=== PATIENT | male | born 1965 | race Caucasian/White ===

== ENCOUNTER 2020-11-04 06:35 | Emergency (ER) | payer BC, SELFPAY ==
[2020-11-04] MEDS ORDERED: CLINDAMYCIN 600MG/D5W 600 MG/50 ML BAG IV ONE (09:25)
[2020-11-04] MEDS ORDERED: KETOROLAC 30 MG/ML INJ ONE (09:25)
[2020-11-04 09:26] LABS: Basophils % 1.1 % (0-1.3); Hematocrit 38.1 % (39.6-49.0); Lymphocytes % 15.6 % (15.3-44.8); RBC Red Blood Cell Count 4.07 M/uL (4.33-5.43)
[2020-11-04] MEDS ORDERED: NA CHLORIDE 0.9% 1,000 ML ONE (09:26)
[2020-11-04 09:44] LABS: Albumin 3.5 g/dL (3.4-5.0); Bilirubin Total 0.6 mg/dL (0.2-1.0); Potassium 4.3 mmol/L (3.5-5.1); Protein, Total 7.4 g/dL (6.4-8.2)
--- NOTE | 2020-11-04 09:51 | RAD REPORT ---
EXAM DESCRIPTION: US - Extremity Nonvascular Limited - 11/04/2020 9:39 am CLINICAL HISTORY: Left elbow swelling COMPARISON: None FINDINGS: Heterogeneous fluid collection is present within the posterior left elbow measuring 3.7 x 0.6 x 3.2 centimeters. IMPRESSION: Heterogeneous fluid collection is present within the posterior left elbow measuring 3.7 x 0.6 x 3.2 centimeters. This could represent a hematoma, inflammatory or infected fluid collection
--- NOTE | 2020-11-04 10:29 | EDPHYS ---
Physician Documentation [facility] Name: Adolfo Kirkpatrick Age: 55 yrs Sex: Male : 1965 Arrival Date: 11/04/2020 Time: 06:44 Bed 18 Private MD: Yaya Saavedra E ED Physician Kera Muñiz HPI: 11/04 09:21 This 55 yrs old Male presents to ER via Ambulatory with complaints of arm ma2 swelling. 09:21 The patient or guardian complains of pain, swelling, tenderness. Onset: The ma2 symptoms/episode began/occurred gradually, 3 day(s) ago. Associated signs and symptoms: Pertinent negatives: abdominal pain, chest pain, diaphoresis, neck pain, shortness of breath, tingling. Severity of symptoms: At their worst the symptoms were mild, in the emergency department the symptoms are unchanged. The patient has not experienced similar symptoms in the past. Historical: - Allergies: 07:42 No Known Allergies; iw - PMHx: 07:42 None; iw - PSHx: 07:42 Appendectomy; cancer removed off lip; iw - Immunization history:: Adult Immunizations not immunized. - Social history:: Smoking status: Patient/guardian denies using tobacco, the patient reports quitting approximately 4 years ago. - Family history:: not pertinent. ROS: 09:21 Constitutional: Negative for fever, chills, and weight loss. ma2 09:21 All other systems are negative. Exam: 09:21 Constitutional: This is a well developed, well nourished patient who is awake, alert, ma2 and in no acute distress. Chest/axilla: Normal chest wall appearance and motion. Nontender with no deformity. No lesions are appreciated. Cardiovascular: Regular rate and rhythm with a normal S1 and S2. No gallops, murmurs, or rubs. Normal PMI, no JVD. No pulse deficits. Respiratory: Lungs have equal breath sounds bilaterally, clear to auscultation and percussion. No rales, rhonchi or wheezes noted. No increased work of breathing, no retractions or nasal flaring. Abdomen/GI: Soft, non-tender, with normal bowel sounds. No distension or tympany. No guarding or rebound. No evidence of tenderness throughout. Skin: Warm, dry with normal turgor. Normal color with no rashes, no lesions, and no evidence of cellulitis. MS/ Extremity: patient has left olecranon bursitis, it is inflammed and red and mildly tender. however elbow joint is not tender he had no effusion and able to fully range the elbow. no fluctuence.. Pulses equal, no cyanosis. Neurovascular intact. Full, normal range of motion. Neuro: Awake and alert, GCS 15, oriented to person, place, time, and situation. Cranial nerves II-XII grossly intact. Motor strength 5/5 in all extremities. Sensory grossly intact. Cerebellar exam normal. Normal gait. Vital Signs: 07:40 BP 138 / 95; Pulse 91; Resp 16; Temp 98.7; Pulse Ox 99% on R/A; Weight 97.52 kg; Height iw 5 ft. 6 in. (167.64 cm); Pain 9/10; 08:00 BP 131 / 83; Pulse 86; Resp 16; Pulse Ox 99% ; bp 09:18 BP 130 / 93; Pulse 83; Resp 16; Pulse Ox 99% ; bp 11:00 BP 140 / 80; Pulse 85; Resp 17; Temp 98.5; Pulse Ox 99% ; bp 07:40 Body Mass Index 34.70 (97.52 kg, 167.64 cm) iw MDM: 08:01 Patient medically screened. il2 09:21 Differential diagnosis: DJD, tendonitis, olecranon bursitis vs cellulitis. il2 10:28 Data reviewed: vital signs, nurses notes. Counseling: I had a detailed discussion with ma2 the patient and/or guardian regarding: the historical points, exam findings, and any diagnostic results supporting the discharge/admit diagnosis, the presence of at least one elevated blood pressure reading (>120/80) during this emergency department visit, the need for outpatient follow up. Response to treatment: the patient's symptoms have markedly improved after treatment. 10:31 ED course: there is heterogenous small fluid collection on left elbow which could ma2 represent hematoma. patient has received iv antibiotics and I instructed him to return to er for any worsening of the following and to follow up with orthopedics as well. . 11/04 08:59 Order name: CBC with Diff ma2 11/04 08:59 Order name: CMP; Complete Time: 09:57 il2 11/04 08:59 Order name: US Extrmty Nonvasular Limited: left elbow pain; Complete Time: 09:57 ma2 11/04 09:29 Order name: ALESSIO with Automated Diff EDMS Administered Medications: 09:15 Drug: NS 0.9% 1000 ml Route: IV; Rate: 1 bolus; Site: right forearm; bp 10:54 Follow up: IV Status: Completed infusion; IV Intake: 1000ml bp 09:15 Drug: TORadol (ketorolac) 30 mg Route: IVP; Site: right forearm; bp 10:54 Follow up: Response: Pain is decreased bp 09:15 Drug: Clindamycin 600 mg Route: IVPB; Infused Over: 30 mins; Site: right forearm; bp 10:55 Follow up: IV Status: Completed infusion; IV Intake: 50ml bp Disposition: 11/04/20 10:28 Discharged to Home. Impression: Olecranon bursitis, left elbow. - Condition is Stable. - Discharge Instructions: Bursitis, Elbow Bursitis. - Prescriptions for Clindamycin HCl 300 mg Oral Capsule - take 1 capsule by ORAL route every 6 hours for 10 days; 40 capsule. Diclofenac Sodium 75 mg Oral Tablet Sustained Release - take 1 tablet by ORAL route 2 times per day; 30 tablet. - Work release form, Family Work Release, Medication Reconciliation Form, Thank You Letter, Antibiotic Education, Prescription Opioid Use form. - Follow up: Private Physician; When: Tomorrow; Reason: Continuance of care. Follow up: Tyrese Queen MD; When: Tomorrow; Reason: If symptoms return, Continuance of care. - Notes: there is a possible flued collection in the left elbow that could represent hematoma or early abscess,Return to Er,ifthere is worsening of left elbow swelling. Signatures: Dispatcher [employer] EDMS May Robert RN RN iw Vasquez Barboza RN RN bp Kera Muñiz MD MD ma2 Corrections: (The following items were deleted from the chart) 10:29 10:28 11/04/2020 10:28 Discharged to Home. Impression: Olecranon bursitis, left elbow. ma2 Condition is Stable. Discharge Instructions: Bursitis, Elbow Bursitis. Prescriptions for Clindamycin HCl 300 mg Oral Capsule - take 1 capsule by ORAL route every 6 hours for 10 days; 40 capsule, Diclofenac Sodium 75 mg Oral Tablet Sustained Release - take 1 tablet by ORAL route 2 times per day; 30 tablet. and Forms are Medication Reconciliation Form, Thank You Letter, Antibiotic Education, Prescription Opioid Use. Follow up: Private Physician; When: Tomorrow; Reason: Continuance of care. ma2 11:11 10:29 11/04/2020 10:28 Discharged to Home. Impression: Olecranon bursitis, left elbow. bp Condition is Stable. Discharge Instructions: Bursitis, Elbow Bursitis. Prescriptions for Clindamycin HCl 300 mg Oral Capsule - take 1 capsule by ORAL route every 6 hours for 10 days; 40 capsule, Diclofenac Sodium 75 mg Oral Tablet Sustained Release - take 1 tablet by ORAL route 2 times per day; 30 tablet. and Forms are Medication Reconciliation Form, Thank You Letter, Antibiotic Education, Prescription Opioid Use. Follow up: Private Physician; When: Tomorrow; Reason: Continuance of care. Follow up: Tyrese Queen; When: Tomorrow; Reason: If symptoms return, Continuance of care. ma2
--- NOTE | 2020-11-04 10:29 | ER ---
Nurse's Notes [facility] Name: Adolfo Kirkpatrick Age: 55 yrs Sex: Male : 1965 Arrival Date: 11/04/2020 Time: 06:44 Bed 18 Private MD: Yaya Saavedra E Diagnosis: Olecranon bursitis, left elbow Presentation: 11/04 07:40 Chief complaint: Patient states: redness and swelling to left elbow since Wednesday , iw gotten worse. Coronavirus screen: At this time, the client does not indicate any symptoms associated with coronavirus-19. Ebola Screen: Patient negative for fever greater than or equal to 101.5 degrees Fahrenheit, and additional compatible Ebola Virus Disease symptoms Patient denies exposure to infectious person. Patient denies travel to an Ebola-affected area in the 21 days before illness onset. No symptoms or risks identified at this time. Initial Sepsis Screen: Does the patient meet any 2 criteria? No. Patient's initial sepsis screen is negative. Does the patient have a suspected source of infection? No. Patient's initial sepsis screen is negative. Risk Assessment: Do you want to hurt yourself or someone else? Patient reports no desire to harm self or others. Onset of symptoms was November 02, 2020. 07:40 Method Of Arrival: Ambulatory iw 07:40 Acuity: UZMA 3 iw Triage Assessment: 08:00 General: Appears in no apparent distress. uncomfortable, Behavior is calm, cooperative, bp appropriate for age. Pain: Complains of pain in left elbow. EENT: No deficits noted. Neuro: No deficits noted. Cardiovascular: No deficits noted. Respiratory: No deficits noted. GI: No signs and/or symptoms were reported involving the gastrointestinal system. : No signs and/or symptoms were reported regarding the genitourinary system. Derm: No deficits noted. Musculoskeletal: Swelling present in left elbow. Historical: - Allergies: 07:42 No Known Allergies; iw - PMHx: 07:42 None; iw - PSHx: 07:42 Appendectomy; cancer removed off lip; iw - Immunization history:: Adult Immunizations not immunized. - Social history:: Smoking status: Patient/guardian denies using tobacco, the patient reports quitting approximately 4 years ago. - Family history:: not pertinent. Screenin:00 Abuse screen: Denies threats or abuse. Denies injuries from another. Nutritional bp screening: No deficits noted. Tuberculosis screening: No symptoms or risk factors identified. Fall Risk None identified. Assessment: 08:00 General: SEE TRIAGE NOTE. bp 09:21 Reassessment: No changes from previously documented assessment. Patient and/or family bp updated on plan of care and expected duration. Pain level reassessed. U/S PENDING. 11:09 Reassessment: PT D/C HOME AMBULATORY WITH FAMILY, DX WITH BURSITIS. bp Vital Signs: 07:40 BP 138 / 95; Pulse 91; Resp 16; Temp 98.7; Pulse Ox 99% on R/A; Weight 97.52 kg; Height iw 5 ft. 6 in. (167.64 cm); Pain 9/10; 08:00 BP 131 / 83; Pulse 86; Resp 16; Pulse Ox 99% ; bp 09:18 BP 130 / 93; Pulse 83; Resp 16; Pulse Ox 99% ; bp 11:00 BP 140 / 80; Pulse 85; Resp 17; Temp 98.5; Pulse Ox 99% ; bp 07:40 Body Mass Index 34.70 (97.52 kg, 167.64 cm) iw ED Course: 06:44 Patient arrived in ED. es 06:44 Yaya Saavedra MD is Private Physician. es 07:42 Triage completed. iw 07:56 Vasquez Barboza, LUIS MIGUEL is Primary Nurse. bp 08:00 Patient has correct armband on for positive identification. Bed in low position. Call bp light in reach. Side rails up X2. Adult w/ patient. 08:01 Kera Muñiz MD is Attending Physician. ma2 08:05 Arm band placed on. bp 09:15 Inserted saline lock: 20 gauge in right forearm, using aseptic technique. Blood bp collected. 09:18 CBC with Diff Sent. bp 09:18 CMP Sent. bp 09:39 US Extrmty Nonvasular Limited: left elbow pain In Process Unspecified. EDMS 10:29 Tyrese Queen MD is Referral Physician. ma2 11:00 No provider procedures requiring assistance completed. IV discontinued, intact, bp bleeding controlled, No redness/swelling at site. Pressure dressing applied. Administered Medications: 09:15 Drug: NS 0.9% 1000 ml Route: IV; Rate: 1 bolus; Site: right forearm; bp 10:54 Follow up: IV Status: Completed infusion; IV Intake: 1000ml bp 09:15 Drug: TORadol (ketorolac) 30 mg Route: IVP; Site: right forearm; bp 10:54 Follow up: Response: Pain is decreased bp 09:15 Drug: Clindamycin 600 mg Route: IVPB; Infused Over: 30 mins; Site: right forearm; bp 10:55 Follow up: IV Status: Completed infusion; IV Intake: 50ml bp Intake: 10:54 IV: 1000ml; Total: 1000ml. bp 10:55 IV: 50ml; Total: 1050ml. bp Outcome: 10:28 Discharge ordered by . michael 11:00 Discharged to home ambulatory, with family. bp 11:00 Condition: stable 11:00 Discharge instructions given to patient, family, Instructed on discharge instructions, follow up and referral plans. medication usage, Demonstrated understanding of instructions, follow-up care, medications, Prescriptions given X 2. 11:11 Patient left the ED. bp Signatures: Dispatcher [employer] EDHamida Crouch Irene, RN RN iw Vasquez Barboza RN RN bp Kera Muñiz MD MD ma2 Corrections: (The following items were deleted from the chart) 07:43 07:40 Pulse 91bpm; Resp 16bpm; Pulse Ox 99% RA; Temp 98.7F; 97.52 kg; Height 5 ft. 6 iw in.; BMI: 34.7; Pain 9/10; iw
[2020-11-04 11:17] VITALS: O2SAT 99
[2020-11-04 11:22] VITALS: BP 140/80; TEMP 98.5
== END 2020-11-04 11:11 | disposition home or self-care (01) ==
LOC: ER 06:35
DX: M70.22 Olecranon bursitis, left elbow (principal); Z85.828 Personal history of other malignant neoplasm of skin; Z87.891 Personal history of nicotine dependence
CPT/HCPCS: 36415; 76882; 80053; 85025; 96365; 96366; 96375; 99284; J7030

== ENCOUNTER 2023-10-13 12:04 | Emergency (ER) | payer SELFPAY ==
[2023-10-13 13:18] LABS: Absolute Basophils 0.1 K/uL (0-0.5); Absolute Eosinophils 0.2 K/uL (0-0.5); Absolute Lymphocytes (CBC) 1.7 K/uL (0.7-4.9); Absolute Monocytes 0.5 K/uL (0.1-1.3); Absolute Neutrophil 5.5 K/uL (1.8-8.0); Basophils % 0.8 % (0-1.3); Eosinophils % 2.4 % (0-4.4); Hematocrit 35.6 % (39.6-49.0); Hemoglobin 11.9 g/dL (13.6-17.9); Lymphocytes % 21.4 % (15.3-44.8); MCH 32.8 pg (27.0-35.0); MCHC 33.4 g/dL (32.0-36.0); MCV 98.1 fL (80-100); MPV 7.1 fL (7.6-11.3); Monocytes % 6.1 % (3.3-12.3); Neutrophils % 69.3 % (41.7-73.7); Platelets 265 thou/uL (152-406); RBC Red Blood Cell Count 3.63 M/uL (4.33-5.43); Red Cell Distribution Width 12.7 % (12.1-15.2)
[2023-10-13 13:21] LABS: PT Prothrombin Time 11.3 SECONDS (9.5-12.5); Protime INR 1.03
[2023-10-13 13:43] LABS: Albumin 3.9 g/dL (3.4-5.0); Anion Gap 12.5 mEq/L (5.0-15.0); Bilirubin Direct 0.2 mg/dL (0-0.2); Bilirubin Indirect, Calculated 0.4 mg/dL (0.2-0.8); Bilirubin Total 0.6 mg/dL (0.2-1.0); Globulin 3.8 g/dL (2.3-3.5); Magnesium 1.9 mg/dL (1.6-2.4); Potassium 3.5 mEq/L (3.5-5.1); Protein, Total 7.7 g/dL (6.4-8.2); Troponin High Sensitivity 31.9 pg/mL (<58.9)
--- NOTE | 2023-10-13 14:14 | RAD REPORT ---
EXAM DESCRIPTION: CT - Chest For Pe Angio - 10/13/2023 1:16 pm CLINICAL HISTORY: CHEST PAIN COMPARISON: Outpt Chest Pa/Lat (2 Views) dated 12/11/2015; CTANGIO CHEST FOR PE dated 01/22/2013 TECHNIQUE: Thin axial CT images of the chest were obtained following administration of 100 mL Isovue 370 IV contrast. Multiplanar reconstructions, and maximum intensity projection reconstructions were generated and reviewed. Exam utilizes a protocol for optimal evaluation of pulmonary arterial tree. All CT scans are performed using dose optimization technique as appropriate and may include automated exposure control or mA/KV adjustment according to patient size. FINDINGS: Pulmonary arteries are normal. No emboli or other suspicious finding. Mild ectasia of the ascending thoracic aorta measuring 4.1 cm in caliber. No other acute or significa nt aorta findings. Mild scattered ground-glass and tree-in-bud opacities in the peripheral lower aspects of the left upp er lobe. No suspicious mass in the lung parenchyma. No pleural thickening or pleural effusion. No pne umothorax. No abnormal mediastinal or hilar masses or lymphadenopathy seen. Mildly prominent posterior mediastin al lymph nodes adjacent to the lower aspect of the esophagus measuring 1 cm in short axis. No chest w all mass or abnormal axilliary lymphadenopathy. Moderate anterior wedge compression deformity at T7, favored to be chronic, although it appears to be a new finding since 2016. IMPRESSION: No evidence of acute central pulmonary emboli. Mild scattered ground-glass and tree-in-bud opacities in the peripheral left upper lobe lower aspect, suggestive of mild pneumonitis. Mild ectasia of the ascending thoracic aorta measuring 4.1 cm in caliber. Moderate anterior wedge compression deformity at T7, favored to be chronic. Please correlate for any focal tenderness.
[2023-10-13] MEDS ORDERED: Levofloxacin500mg IV 500 MG/100 ML BAG IV ONE (14:34)
--- NOTE | 2023-10-13 15:07 | EDPHYS ---
Physician Documentation [facility] Name: Adolfo Kirkpatrick Age: 58 yrs Sex: Male : 1965 Arrival Date: 10/13/2023 Time: 12:04 Bed 13 Private MD: ED Physician Amanda Mustafa HPI: 10/12 13:14 This 58 yrs old Male presents to ER via Ambulatory with complaints of Chest Pain, sp3 Shortness Of Breath. 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 He denies any prior cardiac history, shortness of breath, back pain, abdominal pain, vomiting, diarrhea, rash, weight loss, syncope, near syncope, other focal neurological deficit, change in diet or behavior, or any other signs or symptoms on ROS at this time.. 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 - Infectious Disease History:: Denies. - Social history:: Smoking status: Patient/guardian denies using tobacco, the patient reports quitting approximately 6 years ago. ROS: 13:15 Constitutional: Negative for fever, chills, and weight loss, Eyes: Negative for injury, sp3 pain, redness, and discharge, ENT: Negative for injury, pain, and discharge, Neck: Negative for injury, pain, and swelling, Respiratory: Negative for shortness of breath, cough, wheezing, and pleuritic chest pain, Abdomen/GI: Negative for abdominal pain, nausea, vomiting, diarrhea, and constipation, Back: Negative for injury and pain, MS/Extremity: Negative for injury and deformity, Skin: Negative for injury, rash, and discoloration, Neuro: Negative for headache, weakness, numbness, tingling, and seizure, Psych: Negative for depression, anxiety, suicide ideation, homicidal ideation, and hallucinations, Allergy/Immunology: Negative for hives, rash, and allergies, Endocrine: Negative for neck swelling, polydipsia, polyuria, polyphagia, and marked weight changes, 13:15 All other systems are negative, Exam: 13:15 Constitutional: This is a well developed, well nourished patient who is awake, alert, sp3 and in no acute distress. Head/Face: Normocephalic, atraumatic. Eyes: Pupils equal round and reactive to light, extra-ocular motions intact. Lids and lashes normal. Conjunctiva and sclera are non-icteric and not injected. Cornea within normal limits. Periorbital areas with no swelling, redness, or edema. ENT: Nares patent. No nasal discharge, no septal abnormalities noted. External auditory canals are clear. Oropharynx with no redness, swelling, or masses, exudates, or evidence of obstruction, uvula midline. Mucous membranes moist. Neck: Trachea midline, no thyromegaly or masses palpated, and no cervical lymphadenopathy. Supple, full range of motion without nuchal rigidity, or vertebral point tenderness. No Meningismus. Chest/axilla: Normal chest wall appearance and motion. Nontender with no deformity. No lesions are appreciated. Cardiovascular: Regular rate and rhythm with a normal S1 and S2. No gallops, murmurs, or rubs. Normal PMI, no JVD. No pulse deficits. Respiratory: Lungs have equal breath sounds bilaterally, clear to auscultation and percussion. No rales, rhonchi or wheezes noted. No increased work of breathing, no retractions or nasal flaring. Abdomen/GI: Soft, non-tender, with normal bowel sounds. No distension or tympany. No guarding or rebound. No evidence of tenderness throughout. Back: No spinal tenderness. No costovertebral tenderness. Full range of motion. Skin: Warm, dry with normal turgor. Normal color with no rashes, no lesions, and no evidence of cellulitis. MS/ Extremity: Pulses equal, no cyanosis. Neurovascular intact. Full, normal range of motion. Neuro: Awake and alert, GCS 15, oriented to person, place, time, and situation. Cranial nerves II-XII grossly intact. Motor strength 5/5 in all extremities. Sensory grossly intact. Cerebellar exam normal. Normal gait. Psych: Awake, alert, with orientation to person, place and time. Behavior, mood, and affect are within normal limits. 13:15 ECG was reviewed by the Attending Physician. EKG demonstrates normal sinus rhythm at 73 bpm with normal intervals, normal QRS, normal axis, normal ST's ST segments without evidence of acute ischemia. Vital Signs: 12:09 BP 166 / 115; Pulse 71; Resp 18; Temp 97.9; Pulse Ox 100% ; Weight 99.79 kg; Height 5 iw ft. 6 in. ; Pain 8/10; 13:54 BP 117 / 83; Pulse 68; Resp 13; Pulse Ox 98% ; bp 15:17 BP 132 / 94; Pulse 70; Resp 13; Pulse Ox 99% ; bp 12:09 Body Mass Index 35.51 (99.79 kg, 167.64 cm) iw 12:09 Pain Scale: Adult iw MDM: 12:41 Patient medically screened. sp3 13:16 Data reviewed: vital signs, nurses notes, lab test result(s), EKG, radiologic studies. sp3 ED course: 58-year-old male with prior history of "lip cancer" and no regular medical care now presents to the ED with chest pain. Differential diagnosis includes ACS spectrum, PE, cancer recurrence, electrolyte abnormality, among others. Workup will include EKG which is normal, CT PE protocol, electrolytes and other general labs and general supportive care. Disposition pending workup and patient course.. 10/12 12:52 Order name: Basic Metabolic Panel; Complete Time: 13:51 sp3 10/12 12:52 Order name: CBC with Diff; Complete Time: 13:51 sp3 10/12 12:52 Order name: LFT's; Complete Time: 13:51 sp3 10/12 12:52 Order name: Magnesium; Complete Time: 13:51 sp3 10/12 12:52 Order name: NT PRO-BNP; Complete Time: 13:51 sp3 10/12 12:52 Order name: PT-INR; Complete Time: 13:42 sp10/12 12:52 Order name: Troponin HS; Complete Time: 13:51 sp3 10/12 12:52 Order name: CT Chest For PE Angio; Complete Time: 14:24 sp3 10/12 12:14 Order name: EKG; Complete Time: 12:14 iw 10/12 12:14 Order name: EKG - Nurse/Tech; Complete Time: 12:14 iw 10/12 12:52 Order name: Cardiac monitoring; Complete Time: 13:09 sp3 10/12 12:52 Order name: IV Saline Lock; Complete Time: 13:09 sp3 10/12 12:52 Order name: Labs collected and sent; Complete Time: 13: sp3 10/12 12:52 Order name: O2 Per Protocol; Complete Time: 13: sp3 10/12 12:52 Order name: O2 Sat Monitoring; Complete Time: 13: sp3 Administered Medications: 14:39 Drug: levofloxacin IVPB 500 mg 100 ml IVPB once over 60 mins Volume: 100 ml; Route: bp IVPB; Infused Over: 60 mins; Site: right antecubital; 15:19 Follow up: IV Status: Completed infusion; IV Intake: 100ml bp Disposition Summary: 10/13/23 15:06 Discharge Ordered Notes: Location: Home sp3 Condition: Stable sp3 Diagnosis - Pneumonitis, viral syndrome sp3 Followup: sp3 - With: Private Physician - When: Upon discharge from the Emergency Department - Reason: Continuance of care Discharge Instructions: - Discharge Summary Sheet sp3 - Pneumonitis sp3 Forms: - Work release form bp - Medication Reconciliation Form sp3 - Antibiotic Education sp3 - Prescription Opioid Use sp3 - Patient Portal Instructions sp3 - Leadership Thank You Letter sp3 Prescriptions: - levofloxacin 500 mg Oral tablet - take 1 tablet ORAL route once daily for 7 days; 6 tablet; Refills: 0, Product sp3 Selection Permitted Signatures: Dispatcher [employer] May Neri, RN Vasquez Boyd RN RN Amanda Rose MD MD sp3
--- NOTE | 2023-10-13 15:07 | ER ---
Nurse's Notes [facility] Name: Adolfo Kirkpatrick Age: 58 yrs Sex: Male : 1965 Arrival Date: 10/13/2023 Time: 12:04 Bed 13 Private MD: Diagnosis: Pneumonitis, viral syndrome Presentation: 10/12 12:09 Chief complaint: Patient states: L sided CP int with SOB and palpitations off/on for 1 iw week. Coronavirus screen: Client denies travel out of the [place] in the last 14 days. At this time, the client does not indicate any symptoms associated with coronavirus-19. Ebola Screen: Patient denies travel to an Ebola-affected area in the 21 days before illness onset. Initial Sepsis Screen: Does the patient meet any 2 criteria? No. Patient's initial sepsis screen is negative. Does the patient have a suspected source of infection? No. Patient's initial sepsis screen is negative. Risk Assessment: Do you want to hurt yourself or someone else? Patient reports no desire to harm self or others. Onset of symptoms was October 07, 2023. 12:09 Method Of Arrival: Ambulatory iw 12:09 Acuity: UZMA 3 iw Triage Assessment: 12:09 General: Appears uncomfortable, Behavior is calm, cooperative, appropriate for age. iw Pain: Complains of pain in L chest. Cardiovascular: Reports chest pain, palpitations, shortness of breath. 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 - Infectious Disease History:: Denies. - Social history:: Smoking status: Patient/guardian denies using tobacco, the patient reports quitting approximately 6 years ago. Screenin:10 [facility] ED Fall Risk Assessment (Adult) History of falling in the last 3 months, bp including since admission No falls in past 3 months (0 pts). Abuse screen: Denies threats or abuse. Denies injuries from another. Nutritional screening: No deficits noted. Tuberculosis screening: No symptoms or risk factors identified. Assessment: 12:10 General: Appears in no apparent distress. comfortable, Behavior is calm, cooperative, bp appropriate for age. Pain: Complains of pain in chest Pain does not radiate. Pain began suddenly. Cardiovascular: Reports chest pain. Respiratory: Airway is patent Respiratory effort is even, unlabored, Respiratory pattern is symmetrical. 13:55 Reassessment: Patient appears in no apparent distress at this time. Patient is alert, bp oriented x 3, equal unlabored respirations, skin warm/dry/pink. Vital Signs: 12:09 BP 166 / 115; Pulse 71; Resp 18; Temp 97.9; Pulse Ox 100% ; Weight 99.79 kg; Height 5 iw ft. 6 in. ; Pain 8/10; 13:54 BP 117 / 83; Pulse 68; Resp 13; Pulse Ox 98% ; bp 15:17 BP 132 / 94; Pulse 70; Resp 13; Pulse Ox 99% ; bp 12:09 Body Mass Index 35.51 (99.79 kg, 167.64 cm) iw 12:09 Pain Scale: Adult iw ED Course: 12:05 Patient arrived in ED. mr 12:10 Triage completed. iw 12:10 Arm band placed on. iw 12:20 Amanda Mustafa MD is Attending Physician. sp3 12:20 EKG done, by pest control chemical technician. reviewed by Amanda Mustafa MD. mb9 12:39 Patient placed in an exam room, on a stretcher. iw 12:43 Vasquez Barboza, RN is Primary Nurse. bp 13:09 Troponin HS Sent. bp 13:09 PT-INR Sent. bp 13:09 NT PRO-BNP Sent. bp 13:09 Magnesium Sent. bp 13:09 LFT's Sent. bp 13:09 CBC with Diff Sent. bp 13:09 Basic Metabolic Panel Sent. bp 13:09 CT Chest For PE Angio Sent. bp 13:09 Inserted saline lock: 22 gauge in right antecubital area, using aseptic technique. bp Blood collected. 13:10 Patient has correct armband on for positive identification. Client placed on continuous bp cardiac and pulse oximetry monitoring. NIBP monitoring applied. residential monitor on. Pulse ox on. NIBP on. 13:18 CT Chest For PE Angio In Process Unspecified. EDMS 13:55 O2 via ROOM AIR. bp 15:18 Provided Education on: N/A. bp 15:18 No provider procedures requiring assistance completed. IV discontinued, intact, bp bleeding controlled, No redness/swelling at site. Pressure dressing applied. Administered Medications: 14:39 Drug: levofloxacin IVPB 500 mg 100 ml IVPB once over 60 mins Volume: 100 ml; Route: bp IVPB; Infused Over: 60 mins; Site: right antecubital; 15:19 Follow up: IV Status: Completed infusion; IV Intake: 100ml bp Medication: 13:55 VIS not applicable for this client. bp Intake: 15:19 IV: 100ml; Total: 100ml. bp Outcome: 15:06 Discharge ordered by MD. [place] 15:18 Discharged to home ambulatory, with family, bp 15:18 Condition: stable 15:18 Discharge instructions given to patient, Instructed on discharge instructions, follow up and referral plans. medication usage, Demonstrated understanding of instructions, follow-up care, medications, Prescriptions given X 1, 15:19 Patient left the ED. bp Signatures: Dispatcher [employer]DA[employer] Danica Damon, Reg Per mr May Robert, RN Vasquez Boyd RN RN Amanda Rose MD MD sp3 Danica Louis, RN RN mb9
[2023-10-13 15:47] VITALS: BP 132/94; TEMP 97.9; O2SAT 99
--- NOTE | 2023-10-14 16:44 | EKG ---
Test Date: 2023-10-13 Test Time: 12:15:49 Observatory Director: JACOB MEASUREMENT RESULTS: Intervals: Rate: 73 MD: 172 QRSD: 96 QT: 414 QTc: 456 [place]: P: 31 MD: 172 QRS: -14 T: 68 INTERPRETIVE STATEMENTS: Normal sinus rhythm Normal ECG Compared to ECG 01/22/2013 12:04:54 Sinus bradycardia no longer present Sinus arrhythmia no longer present Electronically Signed On 10-14-23 16:41:56 CDT by Thanh Mukherjee
== END 2023-10-13 15:19 | disposition home or self-care (01) ==
LOC: ER 12:04
DX: B34.9 Viral infection, unspecified (principal); J98.4 Other disorders of lung
CPT/HCPCS: 36415; 71275; 80048; 80076; 83735; 83880; 84484; 85025; 85610; 93005; Q9967